=== PATIENT | female | born 1950 | race Caucasian/White ===

== ENCOUNTER 2020-08-01 16:00 | Outpatient (CLI) | payer MEDICARE, BC ==
[2020-08-01 18:08] LABS: ALT (SGPT) 21 U/L (8-55); AST (SGOT) 21 U/L (5-34); Albumin 4.4 g/dL (3.4-4.8); Alkaline Phosphatase 48 U/L (40-110); Anion Gap 14 mmol/L (10-20); BUN (Urea Nitrogen) 15 mg/dL (9.8-20.1); Bilirubin, Total 0.4 mg/dL (0.2-1.2); Calc. Creatinine Clearance 0 mL/min (70-130); Calcium 9.4 mg/dL (7.8-10.44); Carbon Dioxide 25 mmol/L (23-31); Chloride 105 mmol/L (98-107); Globulin 2.5 g/dL (2.4-3.5); Glucose 92 mg/dL (80-115); Potassium 4.2 mmol/L (3.5-5.1); Protein, Total 6.9 g/dL (5.8-8.1); Sodium 140 mmol/L (136-145)
[2020-08-01 18:34] LABS: #Eosinphils 0.1 10x3/uL (0.0-0.5); #Monocytes 0.4 10x3/uL (0.0-1.1); #Neutrophils 2.8 10x3/uL (1.5-8.4); %Basophils 0.8 % (0.0-2.0); %Eosinophils 2.3 % (0.0-6.0); %Lymphocytes 31.1 % (18.0-47.0); %Monocytes 7.9 % (0.0-10.0); %Neutrophils 57.5 % (40.0-75.0); Hemoglobin 12.8 g/dL (12.0-15.5); Mean Corpuscular HGB CONC 32.2 g/dL (32.0-36.0); Mean Corpuscular Hemoglobin 29.5 pg (27.0-33.0); Mean Corpuscular Volume 91.7 fl (81.6-98.3); Mean Platelet Volume 8.5 fl (7.4-10.4); Platelet Count 283 10x3/uL (150-450); RBC Distribution Width 12.5 % (11.5-14.5); Red Blood Cell (RBC) Count 4.34 10x6/uL (3.90-5.03); White Blood Cell (WBC) Count 4.8 10x3/uL (3.5-10.5)
[2020-08-02 02:13] LABS: SARS-CoV-2 PCR by NAA Not Detected (NotDetected)
== END 2020-08-01 16:01 | disposition home or self-care (01) ==
LOC: LABBT 16:00
PROVIDERS: ATTEND Internal Medicine Cardiovascular Disease
DX: Z01.812 Encounter for preprocedural laboratory examination (principal); Z20.822 Contact with and (suspected) exposure to COVID-19
CPT/HCPCS: 80053; 85025; U0003; U0005; 87635

== ENCOUNTER 2020-08-05 05:51 | Day surgery (SDC) | payer MEDICARE, BC ==
[2020-08-04 10:51] VITALS: BMI 37.5
[2020-08-05] MEDS ORDERED: Midazolam HCl 2 mg/2 ml Vial ONE (07:25)
[2020-08-05] MEDS ORDERED: Heparin 10,000 UNITS/ 10 ML VIAL ONE (07:26)
[2020-08-05] MEDS ORDERED: Fentanyl 100 MCG/2 ML VIAL ONE (07:26)
[2020-08-05] MEDS ORDERED: Nitroglycerin 100MG/250ML BOT 250 ML ONE (07:26)
[2020-08-05] MEDS ORDERED: Verapamil 5 MG/2 ML VIAL ONE (07:26)
[2020-08-05] MEDS ORDERED: Lidocaine 1% (PF) 30 ML VIAL ONE (07:26)
[2020-08-05] MEDS ORDERED: Iopamidol 370 76% 100 ML VIAL ONE (11:09)
== END 2020-08-05 11:35 | disposition home or self-care (01) ==
LOC: CCL 05:51
PROVIDERS: ATTEND Internal Medicine Cardiovascular Disease
PROC: 4A023N7 Measurement of Cardiac Sampling and Pressure, Left Heart, Percutaneous Approach (ICD-10-PCS; principal; 2020-08-05)
PROC: B2111ZZ Fluoroscopy of Multiple Coronary Arteries using Low Osmolar Contrast (ICD-10-PCS; 2020-08-05)
DX: I47.2 Ventricular tachycardia (principal); K59.09 Other constipation; I10 Essential (primary) hypertension; E78.5 Hyperlipidemia, unspecified; K21.9 Gastro-esophageal reflux disease without esophagitis; N32.81 Overactive bladder; Z79.82 Long term (current) use of aspirin; Z79.899 Other long term (current) drug therapy; Z88.2 Allergy status to sulfonamides
CPT/HCPCS: 93458; 99152; J1644; J2001; J2250; J3010; Q9967